=== PATIENT | male | born 1960 | race Caucasian/White ===

== ENCOUNTER 2023-10-11 20:35 | Emergency (ER) | payer OTHER, SELFPAY ==
[2023-10-11 20:36] VITALS: BP 128/77; BMI 26.0
[2023-10-11 20:39] VITALS: BP 128/77
[2023-10-11 21:00] VITALS: BP 115/74
[2023-10-11 21:05] LABS: % Basophils 0.7 % (0-2); % Eosinophils 1.2 % (0-6); % Immature Granulocytes 0.1 % (0-0.5); % Monocytes 9.2 % (1.7-9.3); % Neutrophils 45.8 % (42.2-75.2); Absolute Basophils 0.1 10^3/uL (0-0.2); Absolute Eosinophils 0.1 10^3/uL (0-0.7); Absolute Lymphocytes 3.6 10^3/uL (1.2-3.4); Absolute Monocytes 0.8 10^3/uL (0.1-0.6); Absolute Neutrophils 3.8 10^3/uL (1.4-6.5); Hematocrit 38.8 % (39.0-52.0); Hemoglobin 13.3 g/dL (13.0-18.0); Mean Corp Hgb Conc. 34.3 g/dL (33.0-37.0); Mean Corpuscular Hgb 34.8 pg (27.0-31.0); Mean Corpuscular Volume 101.6 fL (80.0-94.0); Mean Platelet Volume 9.8 fL (7.4-10.4); Nucleated Red Blood Cells % 0 % (-); Platelet Count 329 10^3/uL (130-400); Red Blood Cell Count 3.82 10^6/uL (4.70-6.10); Red Cell Dist. Width 11.7 % (11.5-14.5); White Blood Cell Count 8.3 10^3/uL (4.8-10.8)
[2023-10-11 21:20] LABS: ALT (SGPT) 34 U/L (0-50); AST (SGOT) 38 U/L (17-59); Alkaline Phosphatase 49 U/L (38-126); Blood Urea Nitrogen 32 mg/dl (9-20); Calcium 8.7 mg/dl (8.4-10.2); Carbon Dioxide 23 mmol/L (22-30); Chloride 104 mmol/L (98-107); Estimated Creatinine Clearance 84 ml/min; Glucose 127 mg/dl (70-99); Potassium 4.1 mmol/L (3.5-5.1); Sodium 138 mmol/L (135-145); Total Bilirubin 0.2 mg/dl (0.2-1.3); Total Protein 6.7 g/dl (6.3-8.2); eGFR > 60.00
--- NOTE | 2023-10-11 21:25 | ED.GENMED ---
History of Present Illness
General
Chief Complaint: Fainting/Passed Out
Source: patient
Exam Limitations: none
Time Seen by Provider: 10/11/23 21:06
Travel History
Have you had any contact with someone who has COVID-19?: No
Do you have any symptoms of coronavirus? Fever > 100 degrees, chills, cough, shortness of breath, sore throat, loss of taste or smell, muscle aches, or headache?: No
History of Present Illness
History of Present Illness:
See MDM
Past History
Past History
ED Past Medical History: HTN
ED Past Surgical History: None
Social History
Tobacco: Non-smoker
Alcohol: Occasional
Phy Exam
Physical Exam
Physical Exam:
See MDM
Course
Orders/Labs/Results
Orders:
Orders
10/11/23 20:37
Electrocardiogram (*1) Urgent
Reason for Study: Other
Other Reason for Exam: Respiratory Distress
Cardiac Monitoring- Treatment ONCE
EKG- Treatment ONCE
IV Insert/Care/Rem.- Treatment PRN
10/11/23 20:50
Complete Blood Count/With Diff Urgent
Comprehensive Metabolic Panel Urgent
Troponin I Urgent
Abnormal Lab Results
10/11/23
20:50
RBC 3.82 L 10^6/uL
(4.70-6.10)
Hct 38.8 L %
(39.0-52.0)
MCV 101.6 H fL
(80.0-94.0)
MCH 34.8 H pg
(27.0-31.0)
Absolute Lymphs (auto) 3.6 H 10^3/uL
(1.2-3.4)
Absolute Monos (auto) 0.8 H 10^3/uL
(0.1-0.6)
BUN 32 H mg/dl
(9-20)
Glucose 127 H mg/dl
(70-99)
10/11/23 20:50
10/11/23 20:50
Vital Signs
Initial and Last Documented VS:
Initial Vital Signs
BP
128/77
10/11/23 20:36
Last Documented Vital Signs
Temp Pulse Resp BP Pulse Ox
98.1 F 75 17 122/77 96
10/11/23 20:39 10/11/23 22:45 10/11/23 22:45 10/11/23 22:00 10/11/23 22:45
MDM/Problems Addressed
Differential Diagnosis Includes:
HPI and MDM Narrative:
62-year-old male presenting for an episode of unresponsiveness. Patient was at a wedding and admits that he drank more alcohol than he normally drinks. Patient is clinically intoxicated. Family at bedside stating that they heard that the patient
was slumped over in his seat unresponsive. Bystanders did not feel a pulse and they started CPR. Patient woke up to sternal rub. EMS stating that there was no CPR given. Regardless, patient is awake and alert and offers no complaints.
Family is at bedside at this moment. They did not witness the event. I discussed the low likelihood of a significant cardiac arrhythmia that would be quickly resolved with minimal chest compression and sternal rub. I discussed the likelihood of
hypoperfusion and syncope from alcohol intake.
Physical exam
General: Well appearing and non-toxic
HEENT: protecting airway
Neck: appears supple
CV: No evidence of cyanosis. Regular rate and rhythm
Resp: No accessory muscle use. Lungs clear
Abd: Non-distended
Extremities: No deformities. No leg edema
Neuro: alert. Clinically intoxicated
Psych: Normal affect
Skin: Intact
Problems Addressed including Acute and Chronic Conditions affecting care:
1. Unresponsive episode
Acuity: acute
Prognosis: stable
Details: Likely related to alcohol intoxication rather than significant cardiac arrhythmia. EKG nonischemic. Will obtain basic blood work. Will continue to monitor on telemetry
Updates
Friend at bedside who witnessed the episode. He states that CPR was being administered but patient was holding the hand of the medic. Given the good muscle tone throughout the CPR, doubt life-threatening arrhythmia. Discussed follow-up with
cardiology
Patient has remained in sinus rhythm while on telemetry
Differential Diagnosis (but not limited to): A-fib, syncope, alcohol intoxication, V-fib
Testing considered: Chest x-ray but he denies chest pain
Drug therapy (if applicable): OTC meds, please see d/c instruction regarding Rx drugs
Amount and/or Complexity of Data Reviewed
Clinical info obtained from: Patient
External data reviewed: N/A
Labs I independently reviewed (but not limited to): Troponin negative
Radiology: N/A
Pulse Ox: not hypoxic
EKG independently reviewed: Sinus rhythm, normal axis, no STEMI
Restrooms Or Lounges Maid: sinus rhythm
Critical Care: N/A
Risk of Complication:
Social Determinants of health: Good social support
Discussed with other providers: N/A
Escalation of Care includes Admit/Obs: After being observed in the Emergency Department, pt stable for discharge.
Occasional wrong word or 'sound a like' substitutions may have occurred due to the inherent limitations of voice recognition software. Read the chart carefully and recognize, using context, where substitutions have occurred.
*Critical Care Note
Total Time (30-74mins, 75-104mins- exclusive of procedures): Not Applicable
ED Attending Note
-
Portions of this chart may have been created with voice recognition software.� Occasional wrong word or��sound alike� substitutions may have occurred due to the inherent limitations of voice recognition software.
Discharge Plan
Departure
Patient Disposition: Home (Routine Discharge)
Date of Disposition: 10/11/23
Time of Disposition: 23:02
Patient with high blood pressure during this ER visit?: No
Discharge Problem:
Episode of unresponsiveness
Instructions: Chest Pain CBC Follow Up
Referrals:
Matt Soler MD [Active] -
Brandon Meadows MD [Family Provider] -
Activity Restrictions/Additional Instructions:
Please return for any worsening symptoms.
You may return at any time if you have further concerns.
Please follow up with your doctor at the first available appointment, preferably this week.
You were placed on the cardiac callback tracker. Someone from their office should call you in the next few days. If you do not hear from them in the next few days, please give them a call. Please discuss obtaining a Holter monitor.
Thank you for choosing [facility].
Interventions
Interventions:
*Risk Screen - Suicide Last Done: 10/11/23 20:39
*General Assessment Last Done: 10/11/23 20:39
*Neglect/Abuse Screening Last Done: 10/11/23 20:39
*ED COVID-19 Vaccine History Last Done: 10/11/23 20:39
ED- Cardiac Assessment Last Done: 10/11/23 20:59
ED- Neurological Assessment Last Done: 10/11/23 20:59
[2023-10-11 21:32] LABS: Troponin I < 0.012 ng/ml
[2023-10-11 22:00] VITALS: BP 122/77
== END 2023-10-11 23:31 | disposition home or self-care (01) ==
LOC: EMR 20:35
PROVIDERS: EMERGENCY PHYSICIAN Student in an Organized Health Care Education/Training Program; FAMILY PHYSICIAN Internal Medicine
DX: R40.4 Transient alteration of awareness (principal); R55 Syncope and collapse; F10.129 Alcohol abuse with intoxication, unspecified
CPT/HCPCS: 99284; 80053; 84484; 85025; 93005

== ENCOUNTER → 2023-11-15 09:14 | Outpatient (REF) | payer OTHER, SELFPAY | LOC: RCS 09:14 | PROVIDERS: ATTENDING PHYSICIAN Internal Medicine Cardiovascular Disease; FAMILY PHYSICIAN Internal Medicine | DX: R55 Syncope and collapse (principal); R41.89 Other symptoms and signs involving cognitive functions and awareness; E78.5 Hyperlipidemia, unspecified | CPT/HCPCS: 93306 ==

== ENCOUNTER → 2023-11-20 10:03 | Outpatient (REF) | payer OTHER, SELFPAY | LOC: RCS 10:03 | PROVIDERS: ATTENDING PHYSICIAN Internal Medicine Cardiovascular Disease; FAMILY PHYSICIAN Internal Medicine | DX: R55 Syncope and collapse (principal); R41.89 Other symptoms and signs involving cognitive functions and awareness; E78.5 Hyperlipidemia, unspecified | CPT/HCPCS: 93017; 93350 ==